=== PATIENT | female | born 2000 | race Caucasian/White ===

== ENCOUNTER 2018-03-17 00:41 | Emergency (ER) | payer MEDICAID ==
[~2018-03-17 00:41] MED LIST: IBUP600 PO; PNVPAK PO
[2018-03-17] MEDS ORDERED: LACTATED RINGER'S 1000 ML INJ 1,000 ML IV SCH (01:31)
[2018-03-17] MEDS ORDERED: PROM25TA10 PO (01:42)
--- NOTE | 2018-03-17 01:42 | PD ---
HPI Chief Complaint Abdominal pain like contractions since approximately 7 PM which would be now be about 6 hours Date Seen: March 17, 2018 Time Seen: 01:29 Travel History International Travel<30 Days: No Contact w/Intl Traveler<30Days: No Known Affected Area: No History of Present Illness HPI Patient is 18-year-old white female [address] Arita care presents complaining of abdominal and back pains about the last 6 hours getting worse also some nausea and vomiting, positive vaginal discharge, no itching or odor, was treated with oral pill for yeast not long ago. heart rate is reactive she is david every 2 minutes approximately Weeks Gestation: 30 Para: 1 : 2 History Obstetric History Obstetric History 1 vaginal delivery Social History Alcohol Use: No Tobacco Use: No Substance Abuse: No Allergies-Medications (Allergen,Severity, Reaction): Coded Allergies: No Known Allergies (Unverified , 12/12/14) Home Meds Active Scripts Promethazine (Phenergan) 25 Mg Tablet, 25 MG PO Q6H Y for NAUSEA OR VOMITING, # 20 TAB 0 Refills Prov:Eddie Goodson II, MD 03/17/18 Ibuprofen (Motrin 600 Mg Tab) 600 Mg Tab, 600 MG PO Q6H Y for CRAMPING, #30 TAB 0 Refills Prov:Ann-Marie You 12/16/14 Reported Medications W/O Vit A W/ Fe Carbo (Pnv Ob+Dha) Sean, 1 CAP PO, SEAN 11/21/14 Review of Systems General / Constitutional: No: Fever, Weight Gain, Chills, Other Eyes: No: Diploplia, Blurred Vision, Visual changes, Pain, Photophobia HENT: No: Headaches, Vertigo, Lightheadedness Cardiovascular: No: Irregular Rhythm, Chest Pain or Discomfort, Palpitations, Tachycardia, Syncope, Varicosities, Edema, Cyanosis Respiratory: No: Cough, Short of Breath, Other Gastrointestinal: Nausea, Vomiting, Abdominal Pain, No: Diarrhea Genitourinary: Discharge, No: Decreased Urinary Output, Oliguria Musculoskeletal: No: Limited ROM, Weakness, Cramping, Edema, Pain Skin: No Rash, No Itching, No Dryness, No Lumps, No Change in Pigmentation, No Change in Nails, No Alopecia, No Lesions Neurologic: No: Weakness, Dizziness, Syncope, Focal Abnormalities, Coordination Problem, Headache, Slurred Speech, Seizures Psychiatric: No: Depression, Suicidal Ideations, Homicidal Ideation Endocrine: No: Heat Intolerance, Cold Intolerance, Polydipsia, Polyuria, Other Physical Exam Narrative GENERAL: Well-nourished, well-developed patient. SKIN: Warm and dry. HEAD: Normocephalic and atraumatic. EYES: No scleral icterus. No injection or drainage. ENT: No nasal drainage noted. Mucous membranes pink. Airway patent. NECK: Supple, trachea midline. No JVD. CARDIOVASCULAR: Regular rate and rhythm without murmurs, gallops, or rubs. RESPIRATORY: Breath sounds equal bilaterally. No accessory muscle use. BREASTS: Bilateral exam showed no masses , no retractions, no nipple discharge. ABDOMEN/GI: Abdomen soft, non-tender, bowel sounds present, no rebound, no guarding Gravid to [30-] weeks size Fundal Height: [30-] GENITOURINARY: External Genitalia: intact and normal in appearance Speculum exam done-there is a frothy yellow discharge in the exuding from the cervix and wet prep done and negative Cervix: [Closed-] Dilatation: [-Closed] Effacement: [Thick-] Station: [-3] Membranes: [intact ] Uterine Contractions: [q 2 min-] FHT's: Category: [1-] Baseline: [-133] Reactive: [R-] Variability: [mod-] Decels: [-0] EXTREMITIES: No cyanosis or edema. BACK: Nontender without obvious deformity. No CVA tenderness. NEUROLOGICAL: Awake and alert. Motor and sensory grossly within normal limits. Five out of 5 muscle strength in all muscle groups. Normal speech. Data Data Orders Orders Vital Signs (Adult) .ON ADMISSION (03/17/18:) ^ Labor Status (03/17/18:) ^ Non Stress Test (03/17/18) ^ Hydration (03/17/18) Wet Prep Profile (03/17/18) Lactated Ringer's 1000 Ml Inj (Lr 1000 M (03/17/18:31) Terbutaline Inj (Brethine Inj) (03/17/18 01:45) Fentanyl Inj (Fentanyl Inj) (03/17/18 01:45) Prochlorperazine Inj (Compazine Inj) (03/17/18 01:45) Labs Urine dip on OB ED shows significant ketonuria trace protein otherwise negative wet prep negative MDM Interpretation(s) 30 week intrauterine with back pain abdominal pain for 6 hours found to be david every 2-3 minutes here on OB ED. Cervix is closed thick she does have a vaginal discharge heart rate tracing is reactive., Wet prep is negative but clinically patient appeared to have a cervicitis and will plan to treat with p.o. metronidazole Plan Plan to treat contractions with IV fluid, subcu terbutaline, IV fentanyl . Also will give IV Compazine for nausea and vomiting ., Rx for metronidazole given to take at home 250mg 3 times daily for a week Diagnosis Diagnosis: Primary Impression: Threatened labor, antepartum Additional Impression: 30 weeks gestation of Disposition: 01 DISCHARGE HOME Condition: Stable Scripts Metronidazole (Metronidazole) 250 Mg Tab 250 MG PO TID for Infection for 7 Days, #21 TAB 0 Refills Prov: Eddie Goodson II, MD 03/17/18 Promethazine (Phenergan) 25 Mg Tablet 25 MG PO Q6H Y for NAUSEA OR VOMITING, #20 TAB 0 Refills Prov: Eddie Goodson II, MD 03/17/18 Eddie Goodson II, MD March 17, 2018 01:42
[2018-03-17] MEDS ORDERED: TERBUTALINE INJ 1 MG/ML AMP SQ PRN (01:45)
[2018-03-17] MEDS ORDERED: PROCHLORPERAZINE INJ 10 MG/2 ML VIAL IV PUSH ONE (01:45)
[2018-03-17] MEDS ORDERED: METR250T23 PO (02:00)
== END 2018-03-17 03:56 | disposition home or self-care (01) ==
LOC: HOBED 00:41
DX: O47.03 False labor before 37 completed weeks of gestation, third trimester (principal); Z3A.30 30 weeks gestation of pregnancy
CPT/HCPCS: 59025; 87210; 96361; 96372; 96374; 99284; J0780; J3010; J3105; J7120